=== PATIENT | female | born 1965 | race Caucasian/White ===

== ENCOUNTER 2018-08-13 08:31 | Inpatient (IN) | payer OTHER ==
[~2018-08-13] VITALS: Ht 165.1 cm; Wt 56.2 kg
[2018-08-13] VITALS (11 sets, daily range): BP systolic 121–145; BP diastolic 63–84
[2018-08-13] MEDS ORDERED: MORPHINE SULFATE 4 MG/ML VIAL. IV/SQ PRN (09:00)
--- NOTE | 2018-08-13 09:03 | PHYS DOC ---
Past Medical History Past Medical History: No Pertinent History Smoking: Cigarettes (The patient is a nonsmoker.) Adult General Chief Complaint Chief Complaint: CHEST PAIN HPI HPI Patient is a 53-year-old female who presents to the emergency department for evaluation. She states about an hour and a half prior to arrival, she began experiencing some anterior chest pressure/heaviness, which somewhat radiates towards her neck and medial/posterior aspect of her left arm. She has not had any shortness of breath, diaphoresis, nausea or vomiting. Exertion seemed to slightly worsen her pain. There are no alleviating factors to her symptoms. The pain has waxed and waned once or twice, where she has had some brief relief. She has no prior history of coronary artery disease. Her father did have stroke but has been a heavy smoker. She is not a smoker. She has no history of hypertension. There are no alleviating or exacerbating factors to the patient's symptoms except as noted above. Pt did take 500 mg ASA prior to arrival at work, as she took 2 Excedrin Migrain tablet,s which have 250 mg ASA each.. Review of Systems Review of Systems Constitutional: Denies fever or chills [] Eyes: Denies change in visual acuity, redness, or eye pain [] HENT: Denies nasal congestion or sore throat [] Respiratory: Denies cough or shortness of breath [] Cardiovascular: No additional information not addressed in HPI [] GI: Denies abdominal pain, nausea, vomiting, bloody stools or diarrhea [] : Denies dysuria or hematuria [] Musculoskeletal: Denies back pain or joint pain [] Integument: Denies rash or skin lesions [] Neurologic: Denies headache, focal weakness or sensory changes [] Endocrine: Denies polyuria or polydipsia [] All other systems were reviewed and found to be within normal limits, except as documented in this note. Current Medications Current Medications Current Medications Medications (Trade) Dose Ordered Sig/Maria G Start Time Stop Time Status Last Admin Dose Admin Heparin Sodium (Porcine) (Heparin Sodium) 3,300 unit 1X ONCE 08/13/18 09:30 08/13/18 09:31 DC Heparin Sodium/ Dextrose 500 ml @ 0 mls/hr 1X ONCE 08/13/18 09:30 08/13/18 09:31 DC Morphine Sulfate (Morphine Sulfate) 4 mg PRN Q15MIN PRN 08/13/18 09:00 08/14/18 08:59 Nitroglycerin/ Dextrose 250 ml @ 3 mls/hr 1X ONCE 08/13/18 09:30 08/16/18 20:49 Allergies Allergies Allergies Coded Allergies Type Severity Reaction Last Updated Verified No Known Drug Allergies 08/13/18 No Physical Exam Physical Exam PHYSICAL EXAM: CONSTITUTIONAL: Well developed, well nourished HEAD: normocephalic, atraumatic EENT: PERRL, EOMI. Conjunctivae normal color, sclerae non-icteric; moist mucous membranes. NECK: Supple, non-tender; no meningismus. LUNGS: Lungs CTA, breathing even and unlabored. Normal air movement. HEART: Regular rate and rhythm, no murmur CHEST: No deformity; non-tender ABDOMEN: The abdomen is soft, and non-tender, no masses or bruits. EXTREM: Normal ROM; no deformity, no calf tenderness. Normal pulses palpable in all extremities. There is no pedal edema. SKIN: No rash; no diaphoresis NEURO: Alert; normal speech and cognition; CN's grossly intact; strength grossly intact without focal deficit. BACK: No CVA TTP. Current Patient Data Vital Signs Vital Signs Date Time Temp Pulse Resp B/P (MAP) Pulse Ox O2 Delivery O2 Flow Rate FiO2 08/13/18 08:45 97.4 77 16 167/103 (124) 100 Room Air 97.4 Lab Values Laboratory Tests Test 08/13/18 09:00 White Blood Count 6.7 x10^3/uL (4.0-11.0) Red Blood Count 5.01 x10^6/uL (3.50-5.40) Hemoglobin 15.2 g/dL (12.0-15.5) Hematocrit 44.4 % (36.0-47.0) Mean Corpuscular Volume 89 fL (79-100) Mean Corpuscular Hemoglobin 30 pg (25-35) Mean Corpuscular Hemoglobin Concent 34 g/dL (31-37) Red Cell Distribution Width 12.5 % (11.5-14.5) Platelet Count 289 x10^3/uL (140-400) Neutrophils (%) (Auto) 55 % (31-73) Lymphocytes (%) (Auto) 34 % (24-48) Monocytes (%) (Auto) 10 % (0-9) H Eosinophils (%) (Auto) 1 % (0-3) Basophils (%) (Auto) 1 % (0-3) Neutrophils # (Auto) 3.7 x10^3uL (1.8-7.7) Lymphocytes # (Auto) 2.3 x10^3/uL (1.0-4.8) Monocytes # (Auto) 0.6 x10^3/uL (0.0-1.1) Eosinophils # (Auto) 0.1 x10^3/uL (0.0-0.7) Basophils # (Auto) 0.0 x10^3/uL (0.0-0.2) Prothrombin Time 13.8 SEC (11.7-14.0) Prothrombin Time INR 1.1 (0.8-1.1) Sodium Level 135 mmol/L (136-145) L Potassium Level 4.0 mmol/L (3.5-5.1) Chloride Level 99 mmol/L (98-107) Carbon Dioxide Level 29 mmol/L (21-32) Anion Gap 7 (6-14) Blood Urea Nitrogen 17 mg/dL (7-20) Creatinine 0.9 mg/dL (0.6-1.0) Estimated GFR (Cockcroft-Gault) 65.2 BUN/Creatinine Ratio 19 (6-20) Glucose Level 113 mg/dL (70-99) H Calcium Level 9.4 mg/dL (8.5-10.1) Total Bilirubin 0.4 mg/dL (0.2-1.0) Aspartate Amino Transferase (AST) 20 U/L (15-37) Alanine Aminotransferase (ALT) 25 U/L (14-59) Alkaline Phosphatase 67 U/L (46-116) Troponin I Quantitative 0.063 ng/mL (0.000-0.055) Total Protein 8.1 g/dL (6.4-8.2) Albumin 4.4 g/dL (3.4-5.0) Albumin/Globulin Ratio 1.2 (1.0-1.7) Laboratory Tests 08/13/18 09:00 Laboratory Tests 08/13/18 09:00 EKG EKG [Normal sinus rhythm a rate of 70 beats for minute, normal axis, normal intervals, there is anterior/lateral ST depression in leads V3 through V5. There is no ST elevation.] Repeat EKG done at 933 shows normal sinus rhythm at a rate of 74 beats for minute, normal axis, normal intervals, improvement in the ST depression anteriorly/laterally that was present on a prior EKG without acute ischemic changes present at this time. Radiology/Procedures Radiology/Procedures []ER physician preliminary chest x-ray interpretation: No acute disease. Course & Med Decision Making Course & Med Decision Making Pertinent Labs and Imaging studies reviewed. (See chart for details) [8:55 AM: Assessment in the emergency Department reveals a 53-year-old female who has a story concerning for anginal chest pain, with some EKG changes suggestive of coronary ischemia. I did speak with cardiology on-call who will come see the patient. She'll be started on heparin, pending her chest x-ray, as well as nitroglycerin. The patient did take 500 mg of aspirin prior to arrival.] 9:35 AM:The patient's condition remains stable. I spoke with the hospitalist, who accepted the patient to the hospital for further evaluation and treatment. Cardiology has been consulted as well. CRITICAL CARE TIME: 45 Minutes, excluding any procedures and care of other patients. Dragon Disclaimer Dragon Disclaimer This electronic medical record was generated, in whole or in part, using a voice recognition dictation system. Departure Departure Impression: Primary Impression: Chest pain Additional Impression: Acute coronary syndrome Disposition: ADMITTED INPATIENT Admitting Physician: Brandon Da Silva Condition: STABLE Problem Qualifiers KOTA ORTIZ MD Aug 13, 2018 09:02
--- NOTE | 2018-08-13 09:07 | PDOC2 ---
TILA DANGELO PLY SPLICER 08/13/18 0907: CARDIAC CONSULT DATE OF CONSULT Date of Consult DATE: 08/13/18 TIME: 09:05 REASON FOR CONSULT Reason for Consult: ACS REFERRING PHYSICIAN Referring Physician: Seng SOURCE Source: Chart review, Patient HISTORY OF PRESENT ILLNESS HISTORY OF PRESENT ILLNESS This is a pleasant 53 yo female admitted for complains of chest pain. Reports that she was at work when she started having midchest pressure. This radiated to her neck and to her left arm. No nausea or SOA nor palpitations. No prior chest discomfort no FU or exertional CP prior to this. She did report that she climbed 2 flight of stairs just to get ASA but but her chest pressure did not get worse and no SOA. No prior hx of cardiac disease. She actually did yoga Friday with no difficulty. No tobacco use nor recreational drug use. Reports no family hx of cardiac diseases, no PUD, no recent long distance travel nor hx of VTE. Denies any routine medications and just takes advil PRN. She is still having mid chest pressure but not as bad. PAST MEDICAL HISTORY Past Medical History Nephrolithiasis, postmenopausal otherwise no significant medical hx. PAST SURGICAL HISTORY Past Surgical History: No pertinent history FAMILY HISTORY Family History: Stroke (father) SOCIAL HISTORY Smoke: No ALCOHOL: none Drugs: None Lives: with Family ALLERGIES ALLERGIES: Coded Allergies: No Known Drug Allergies (Unverified , 08/13/18) ROS Review of System 14 point ROS evaluated with pertinent positives noted per HPI PHYSICAL EXAM General: Alert, Oriented X3, Cooperative, No acute distress HEENT: Atraumatic, Mucous membr. moist/pink Lungs: Clear to auscultation, Normal air movement Heart: Regular rate (SR), Normal S1, Normal S2, No murmurs Abdomen: Soft, No tenderness Extremities: No cyanosis, No edema Skin: No breakdown, No significant lesion Neuro: Normal speech, Sensation intact Psych/Mental Status: Mental status NL, Mood NL MUSCULOSKELETAL: Osteoarthritic changes both hands ASSESSMENT/PLAN ASSESSMENT/PLAN NSTEMI: subtle ST depression contiguous V3-V5 with mild elevation of trop at 0.063 with typical CP. HTN: new HLP: new Postmenopausal Recommendations 1. Heparin, NTG drip, ASA. 2. Lipids, TTE 3. Significantly explained the need for LHC and ACS pathophysiology. Risks and benefits explained, pt hesitant currently, awaiting primary carrdiologist to talk to pt. DB ABDULLAHI MD 08/13/18 1734: CARDIAC CONSULT ASSESSMENT/PLAN ASSESSMENT/PLAN Patient seen and examined. Agree with above nurse practitioner note. 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 Continue aggressive risk factor modification. Discussed with patient and family. TILA DANGELO APRN Aug 13, 2018 09:07 DB ABDULLAHI MD Aug 13, 2018 17:34
--- NOTE | 2018-08-13 09:12 | RAD ---
EXAM: CHEST 1 VIEW History: Chest pain COMPARISON: None available. TECHNIQUE: Single portable radiograph of the chest FINDINGS: The cardiac silhouette is unremarkable. The lungs are clear bilaterally. The costophrenic sulci are clear and well demarcated. IMPRESSION: No radiographic evidence of an acute cardiopulmonary process. Electronically signed by: Jace Sosa MD (08/13/2018 9:08 AM) [id number]
[2018-08-13 09:17] LABS: BASO % 1 % (0-3); EOS # 0.1 x10^3/uL (0.0-0.7); EOS % 1 % (0-3); HEMATOCRIT 44.4 % (36.0-47.0); HEMOGLOBIN 15.2 g/dL (12.0-15.5); LYMPH # 2.3 x10^3/uL (1.0-4.8); LYMPH % 34 % (24-48); MEAN CORPUSCULAR HEMOGLOBIN 30 pg (25-35); MEAN CORPUSCULAR HGB CONC 34 g/dL (31-37); MEAN CORPUSCULAR VOLUME 89 fL (79-100); MONO # 0.6 x10^3/uL (0.0-1.1); MONO % 10 % (0-9); NEUT # 3.7 x10^3uL (1.8-7.7); NEUT % 55 % (31-73); PLATELET COUNT 289 x10^3/uL (140-400); RED BLOOD COUNT 5.01 x10^6/uL (3.50-5.40); RED CELL DISTRIBUTION WIDTH 12.5 % (11.5-14.5); WHITE BLOOD COUNT 6.7 x10^3/uL (4.0-11.0)
[2018-08-13 09:23] LABS: CALCIUM 9.4 mg/dL (8.5-10.1); CREATININE 0.9 mg/dL (0.6-1.0); GFR 65.2
[2018-08-13 09:28] LABS: ALBUMIN 4.4 g/dL (3.4-5.0); ALBUMIN/GLOBULIN RATIO 1.2 (1.0-1.7); TOTAL BILIRUBIN 0.4 mg/dL (0.2-1.0); TOTAL PROTEIN 8.1 g/dL (6.4-8.2)
[2018-08-13 09:30] LABS: PROTHROMBIN TIME PATIENT 13.8 SEC (11.7-14.0)
[2018-08-13] MEDS ORDERED: HEPARIN for IV BOLUS 10,000 UNIT/10 ML VIAL. IV ONE (09:30)
[2018-08-13] MEDS ORDERED: HEPARIN 25,000UTS/500ML PREMIX 500 ML IV ONE (09:30)
[2018-08-13] MEDS ORDERED: NITROGLYCERIN PREMIX 250 ML IV ONE (09:30)
--- NOTE | 2018-08-13 09:45 | EKG ---
[facility] [address] [place] [address] Test Date: 2018-08-13 Test Time: 09:33:59 Pat Name: TADEO CALDERA Department: Room: Gender: F Clam Shucker: : 1965 Requested By: KOTA ORTIZ Order Number: [id number] Reading MD: Harvey Hong MD Measurements Intervals [place] Rate: 74 P: -20 NV: 114 QRS: 66 QRSD: 78 T: 48 QT: 378 QTc: 420 Interpretive Statements SR NON-SPECIFIC ST/T CHANGES Electronically Signed On 08-17-2018 8:32:30 AVAYA ENGINEER by Harvey Hong MD
--- NOTE | 2018-08-13 10:14 | PDOC1 ---
History and Physical Date of Admission Date of Admission DATE: 08/13/18 TIME: 10:13 Identification/Chief Complaint Chief Complaint SEEN IN ER , began experiencing some anterior chest pressure/heaviness, radiates towards her neck and medial/posterior aspect of her left arm. has not had any shortness of breath, diaphoresis, nausea or vomiting. no alleviating factors to her symptoms. heparin drip started in ER, NTG drip as well exercised last week at yoga session, denied chest pain with exertion Past Medical History Cardiovascular: No pertinent hx Pulmonary: No pertinent hx Heme/Onc: No pertinent hx Hepatobiliary: No pertinent hx Psych: No pertinent hx ENT: No pertinent hx Renal/: No pertinent hx Dermatology: No pertinent hx Past Surgical History Past Surgical History: No pertinent history Family History Family History: Parent Social History Smoke: No ALCOHOL: none Drugs: None, Other (denies stress at work) Current Problem List Problem List Problems Medical Problems: (1) Acute coronary syndrome Status: Acute (2) Chest pain Status: Acute Current Medications Current Medications Current Medications Heparin Sodium (Porcine) (Heparin Sodium) 3,300 unit 1X ONCE IV Last administered on 08/13/18at 09:40; Start 08/13/18 at 09:30; Stop 08/13/18 at 09 :31; Status DC Heparin Sodium/ Dextrose 500 ml @ 0 mls/hr 1X ONCE IV Last administered on at 09:41; Start 08/13/18 at 09:30; Stop 08/13/18 at 09:31; Status DC Nitroglycerin/ Dextrose 250 ml @ 3 mls/hr 1X ONCE IV Last administered on at 09:41; Start 08/13/18 at 09:30; Stop 08/16/18 at 20:49 Morphine Sulfate (Morphine Sulfate) 4 mg PRN Q15MIN PRN IV/SQ PAIN GREATER THAN 3/10; Start 08/13/18 at 09:00; Stop 08/14/18 at 08:59 Allergies Allergies: Coded Allergies: No Known Drug Allergies (Unverified , 08/13/18) ROS Review of System Review of Systems Review of Systems Constitutional: Denies fever or chills [] Eyes: Denies change in visual acuity, redness, or eye pain [] HENT: Denies nasal congestion or sore throat [] Respiratory: Denies cough or shortness of breath [] Cardiovascular: No additional information not addressed in HPI [] GI: Denies abdominal pain, nausea, vomiting, bloody stools or diarrhea [] : Denies dysuria or hematuria [] Musculoskeletal: Denies back pain or joint pain [] Integument: Denies rash or skin lesions [] Neurologic: Denies headache, focal weakness or sensory changes [] Endocrine: Denies polyuria or polydipsia [] 14 pt systems were reviewed and found to be within normal limits, except as documented Eyes: No Blurry vision, No Decreased vision, No Double vision, No Dry eyes, No Excessive tearing, No Eye Pain, No Itchy Eyes, No Loss of vision, No Photophobia , No Scotomata, No Uses contacts, No Uses glasses, No Other Hematological and Lymphatic: No: Bleeding Problems, Blood Clots, Blood Transfusions, Brusing, Night Sweats, Pallor, Swollen Lymph Nodes, Other Respiratory: YES: Shortness of breath Cardiovascular: yes Chest Pain Gastrointestinal: No Nausea, No Vomiting, No Abdominal Pain, No Diarrhea, No Constipation, No Melena, No Hematochezia, No Other Musculoskeletal: No Gait Disturbance, No Joint Pain, No Joint Stiffness, No Joint Swelling, No Muscle Pain, No Muscular Weakness, No Pain In:, No Swelling In:, No Other Neurological: No Behavorial Changes, No Bowel/Bladder ControlChng, No Confusion , No Dizziness, No Gait Disturbance, No Headaches, No Impaired Coord/balance, No Memory Loss, No Numbness/Tingling, No Seizures, No Speech Problems, No Tremors, No Visual Changes, No Weakness, No Other Physical Exam Physical Exam Physical Exam Physical Exam PHYSICAL EXAM: Well developed, well nourished HEAD: normocephalic, atraumatic EENT: PERRL, EOMI. Conjunctivae normal color, sclerae non-icteric; moist mucous membranes. NECK: Supple, non-tender; no meningismus. LUNGS: Lungs CTA, breathing even and unlabored. Normal air movement. HEART: Regular rate and rhythm, no murmur CHEST: No deformity; non-tender ABDOMEN: The abdomen is soft, and non-tender, no masses or bruits. EXTREM: Normal ROM; no deformity, no calf tenderness. Normal pulses palpable in all extremities. There is no pedal edema. SKIN: No rash; no diaphoresis NEURO: Alert; normal speech and cognition; CN's grossly intact; strength grossly intact without focal deficit. BACK: No CVA TTP. General: Oriented X3, Cooperative HEENT: Atraumatic Lungs: Clear to auscultation, Normal air movement Heart: RRR, no thrills, no murmurs Breasts: Not examined Rectal Exam: not examined Extremities: No cyanosis Neuro: Normal speech, Cranial nerves 3-12 NL Psych/Mental Status: Mood NL Vitals Vitals Vital Signs Date Time Temp Pulse Resp B/P (MAP) Pulse Ox O2 Delivery O2 Flow Rate FiO2 08/13/18 08:45 97.4 77 16 167/103 (124) 100 Room Air 97.4 Labs Labs Laboratory Tests Test 08/13/18 09:00 White Blood Count 6.7 x10^3/uL (4.0-11.0) Red Blood Count 5.01 x10^6/uL (3.50-5.40) Hemoglobin 15.2 g/dL (12.0-15.5) Hematocrit 44.4 % (36.0-47.0) Mean Corpuscular Volume 89 fL (79-100) Mean Corpuscular Hemoglobin 30 pg (25-35) Mean Corpuscular Hemoglobin Concent 34 g/dL (31-37) Red Cell Distribution Width 12.5 % (11.5-14.5) Platelet Count 289 x10^3/uL (140-400) Neutrophils (%) (Auto) 55 % (31-73) Lymphocytes (%) (Auto) 34 % (24-48) Monocytes (%) (Auto) 10 % (0-9) Eosinophils (%) (Auto) 1 % (0-3) Basophils (%) (Auto) 1 % (0-3) Neutrophils # (Auto) 3.7 x10^3uL (1.8-7.7) Lymphocytes # (Auto) 2.3 x10^3/uL (1.0-4.8) Monocytes # (Auto) 0.6 x10^3/uL (0.0-1.1) Eosinophils # (Auto) 0.1 x10^3/uL (0.0-0.7) Basophils # (Auto) 0.0 x10^3/uL (0.0-0.2) Prothrombin Time 13.8 SEC (11.7-14.0) Prothromb Time International Ratio 1.1 (0.8-1.1) Sodium Level 135 mmol/L (136-145) Potassium Level 4.0 mmol/L (3.5-5.1) Chloride Level 99 mmol/L (98-107) Carbon Dioxide Level 29 mmol/L (21-32) Anion Gap 7 (6-14) Blood Urea Nitrogen 17 mg/dL (7-20) Creatinine 0.9 mg/dL (0.6-1.0) Estimated GFR (Cockcroft-Gault) 65.2 BUN/Creatinine Ratio 19 (6-20) Glucose Level 113 mg/dL (70-99) Calcium Level 9.4 mg/dL (8.5-10.1) Total Bilirubin 0.4 mg/dL (0.2-1.0) Aspartate Amino Transf (AST/SGOT) 20 U/L (15-37) Alanine Aminotransferase (ALT/SGPT) 25 U/L (14-59) Alkaline Phosphatase 67 U/L (46-116) Creatine Kinase 83 U/L (26-192) Creatine Kinase MB (Mass) 0.7 ng/mL (0.0-3.6) Creatine Kinase MB Relative Index 0.8 % (0-4) Troponin I Quantitative 0.063 ng/mL (0.000-0.055) YR-Crb-D-Type Natriuretic Peptide 39 pg/mL (0-124) Total Protein 8.1 g/dL (6.4-8.2) Albumin 4.4 g/dL (3.4-5.0) Albumin/Globulin Ratio 1.2 (1.0-1.7) Laboratory Tests Test 08/13/18 09:00 White Blood Count 6.7 x10^3/uL (4.0-11.0) Red Blood Count 5.01 x10^6/uL (3.50-5.40) Hemoglobin 15.2 g/dL (12.0-15.5) Hematocrit 44.4 % (36.0-47.0) Mean Corpuscular Volume 89 fL (79-100) Mean Corpuscular Hemoglobin 30 pg (25-35) Mean Corpuscular Hemoglobin Concent 34 g/dL (31-37) Red Cell Distribution Width 12.5 % (11.5-14.5) Platelet Count 289 x10^3/uL (140-400) Neutrophils (%) (Auto) 55 % (31-73) Lymphocytes (%) (Auto) 34 % (24-48) Monocytes (%) (Auto) 10 % (0-9) Eosinophils (%) (Auto) 1 % (0-3) Basophils (%) (Auto) 1 % (0-3) Neutrophils # (Auto) 3.7 x10^3uL (1.8-7.7) Lymphocytes # (Auto) 2.3 x10^3/uL (1.0-4.8) Monocytes # (Auto) 0.6 x10^3/uL (0.0-1.1) Eosinophils # (Auto) 0.1 x10^3/uL (0.0-0.7) Basophils # (Auto) 0.0 x10^3/uL (0.0-0.2) Prothrombin Time 13.8 SEC (11.7-14.0) Prothromb Time International Ratio 1.1 (0.8-1.1) Sodium Level 135 mmol/L (136-145) Potassium Level 4.0 mmol/L (3.5-5.1) Chloride Level 99 mmol/L (98-107) Carbon Dioxide Level 29 mmol/L (21-32) Anion Gap 7 (6-14) Blood Urea Nitrogen 17 mg/dL (7-20) Creatinine 0.9 mg/dL (0.6-1.0) Estimated GFR (Cockcroft-Gault) 65.2 BUN/Creatinine Ratio 19 (6-20) Glucose Level 113 mg/dL (70-99) Calcium Level 9.4 mg/dL (8.5-10.1) Total Bilirubin 0.4 mg/dL (0.2-1.0) Aspartate Amino Transf (AST/SGOT) 20 U/L (15-37) Alanine Aminotransferase (ALT/SGPT) 25 U/L (14-59) Alkaline Phosphatase 67 U/L (46-116) Creatine Kinase 83 U/L (26-192) Creatine Kinase MB (Mass) 0.7 ng/mL (0.0-3.6) Creatine Kinase MB Relative Index 0.8 % (0-4) Troponin I Quantitative 0.063 ng/mL (0.000-0.055) XA-Mut-D-Type Natriuretic Peptide 39 pg/mL (0-124) Total Protein 8.1 g/dL (6.4-8.2) Albumin 4.4 g/dL (3.4-5.0) Albumin/Globulin Ratio 1.2 (1.0-1.7) VTE Prophylaxis Ordered VTE Prophylaxis Devices: Yes VTE Pharmacological Prophylaxi: Yes Assessment/Plan Assessment/Plan impression 1. angina 2. acute coronary syndrome? 3. hyperlipidemia plan admit cvc cardiology consult iv heparin drip iv ntg drip echo gi prophylaxis serial troponin i tele CHILO SURESH MD Aug 13, 2018 10:14
[2018-08-13 10:16] LABS: CHOLESTEROL/HDL RATIO 3.3
[2018-08-13] MEDS ORDERED: HEPARIN for ARTERIAL LINE 1,500 ML ONE (10:50)
[2018-08-13] MEDS ORDERED: LIDOCAINE 1% PF 2 ML VIAL. ONE (10:50)
[2018-08-13] MEDS ORDERED: IOHEXOL 300 MG/ML 100ML VIAL. ONE ×2 (10:50→12:32)
[2018-08-13] MEDS: PANTOPRAZOLE 40 MG TABLET.DR. PO SCH (11:00)
[2018-08-13] MEDS ORDERED: LABETALOL 20 MG/4 ML DISP.SYRIN. IVP PRN (11:00)
[2018-08-13] MEDS ORDERED: fentaNYL PF VIAL 100 MCG/2 ML VIAL ONE (11:24)
[2018-08-13] MEDS ORDERED: MIDAZOLAM HCL/PF 2 MG/2 ML VIAL. ONE ×2 (11:24→12:13)
[2018-08-13] MEDS ORDERED: HEPARIN for IV BOLUS 10,000 UNIT/10 ML VIAL. ONE (11:25)
[2018-08-13] MEDS ORDERED: NITROGLYCERIN 200 MCG/2 ML SYRINGE FOR CATH/VASC LAB. ONE ×2 (11:25→12:50)
[2018-08-13] MEDS ORDERED: VERAPAMIL 5 MG/2 ML VIAL. ONE (11:25)
--- NOTE | 2018-08-13 12:05 | CARD ---
MR#: [id number] Date of Study: 08/13/2018 Ordering Physician: TILA DANGELO, Referring Physician: CHILO SURESH Tech: Vani Bhatia [facility] APPROVED REPORT EXAM: Two-dimensional and M-mode echocardiogram with Doppler and color Doppler. Other Information Quality : AverageHR: 82bpm Rhythm : NSR INDICATION positive troponin 2D DIMENSIONS RVDd2.1 (2.9-3.5cm)IVSd0.9 (0.7-1.1cm) Aortic Root(2D)2.7 (2.0-3.7cm)LVDd3.6 (3.9-5.9cm) LVOT Diameter1.8 (1.8-2.4cm)PWd0.9 (0.7-1.1cm) LVDs2.6 (2.5-4.0cm)FS (%) 28.0 % SV29.4 mlLVEF(%)55.2 (>50%) M-Mode DIMENSIONS Left Atrium(MM)2.53 (2.5-4.0cm)Aortic Root2.92 (2.2-3.7cm) Aortic Valve AoV Peak Amado.140.2cm/sAoV VTI24.7cm AO Peak GR.7.9mmHgLVOT VTI 19.15cm AO Mean GR.5mmHgAVA (VTI)2.10cm2 Mitral Valve MV E Kcywuorc40.3cm/sMV DECEL OUMH82ku MV A Ehdhvsao99.4cm/sE/A Ratio1.0 MV A [id number] TDI Lateral E' P. V14.29cm/sMedial E' P. V12.49cm/s E/Lateral E'5.5E/Medial E'6.3 LEFT VENTRICLE The left ventricle cavity is small. There is normal left ventricular wall thickness. The Ejection Fra ction is 55-60%. Cannot rule out mild hypokinesis of the distal 1/2 of the LV. Technically limited im ages. Transmitral Doppler flow pattern is Grade I-abnormal relaxation pattern. RIGHT VENTRICLE The right ventricle is normal size. There is normal right ventricular wall thickness. The right ventr icular systolic function is normal. Probable prominent anterior pericardial fat pad. Cannot rule out localized effusion. ATRIA The left atrium size is normal. The right atrium size is normal. The interatrial septum is intact wit h no evidence for an atrial septal defect or patent foramen ovale as noted on 2-D or Doppler imaging. AORTIC VALVE Not well visualized. Doppler and Color Flow revealed no significant aortic regurgitation. There is no significant aortic valvular stenosis. MITRAL VALVE The mitral valve is normal in structure and function. There is no evidence of mitral valve prolapse. There is no mitral valve stenosis. Doppler and Color Flow revealed no mitral valve regurgitation note d. TRICUSPID VALVE The tricuspid valve is normal in structure and function. Doppler and Color Flow revealed no tricuspid valve regurgitation noted. There is no tricuspid valve prolapse or vegetation. There is no tricuspid valve stenosis. PULMONIC VALVE Pulmonic valve not well visualized. GREAT VESSELS The aortic root is normal in size. The ascending aorta is normal in size. The IVC is normal in size a nd collapses >50% with inspiration. PERICARDIAL EFFUSION There is a small loculated pericardial effusion around the right heart with echodensities seen in the fluid. Critical Notification Critical Value: No <Conclusion> The Ejection Fraction is 55-60%. Cannot rule out mild hypokinesis of the distal 1/2 of the LV. Techni guilherme limited images. Probable prominent anterior pericardial fat pad. Cannot rule out localized effusion. Signed by : Harvey Hong, Electronically Approved : 08/13/2018 12:04:20
[2018-08-13] MEDS ORDERED: VERAPAMIL 5 MG/2 ML VIAL. IART ONE (12:30)
[2018-08-13] MEDS ORDERED: IV NORMAL SALINE 500ML BAG 500 ML IV ONE (12:30)
[2018-08-13] MEDS ORDERED: LIDOCAINE 1% PF 2 ML VIAL. INJ ONE (12:30)
[2018-08-13] MEDS ORDERED: fentaNYL PF VIAL 100 MCG/2 ML VIAL IV ONE (12:30)
[2018-08-13] MEDS ORDERED: CONTRAST GIVEN. MC PRN (12:30)
[2018-08-13] MEDS ORDERED: MIDAZOLAM HCL/PF 2 MG/2 ML VIAL. IV ONE (12:30)
[2018-08-13] MEDS ORDERED: IOHEXOL 300 MG/ML 100ML VIAL. IART ONE (12:30)
[2018-08-13] MEDS ORDERED: HEPARIN for IV BOLUS 10,000 UNIT/10 ML VIAL. IART ONE (12:30)
[2018-08-13] MEDS ORDERED: NITROGLYCERIN 200 MCG/2 ML SYRINGE FOR CATH/VASC LAB. IART ONE (12:30)
--- NOTE | 2018-08-13 13:07 | CARD ---
MR#: [id number] Date of Study: 08/13/2018 Ordering Physician: TILA DANGELO, Referring Physician: CHILO SURESH Tech: Grace Anderson RTR APPROVED REPORT Technologist: Grace Anderson RTR Nurse: Clau Diaz RN Procedure(s) performed: Moderate Sedation time: 50 minutes LHC, Coronary angiography, Left ventriculogram HISTORY The patient is a 53 year-old female with a history of : previous GA. INDICATION The indication(s) include : non-STEMI . PROCEDURE NARRATIVE CLINICAL INFORMATION: Healthy 53 y.o female w/o significant risk factors presented with classic anginal chest pain, positiv e troponin and abnormal EKG changes. Due to her presentation it was felt that occult CAD and spontane ous coronary artery dissection needed to be ruled out due to persistent pain despite NTG therapy. INFORMED CONSENT: After explaining the risks and benefits of the procedure and alternatives, informed consent was obtained. The patient was brought electively to the cardiac catheterization lab. A timeout was performed confi rming the patient's name, date of , procedure, and site of procedure. All necessary personnel w ere wearing the appropriate protective equipment and radiation monitor devices. (See nursing notes for medications administered). ACCESS: The right wrist was sterilely prepped and draped in the usual fashion. The right wrist was infiltrat ed with 1 mL of 2% lidocaine for subcutaneous anesthesia. A 6 [place] Terumo glide sheath was inserte d into the right radial artery without difficulty. CORONARY ANGIOGRAPHY: Right and left coronary angiography was performed using a 6Fr TIG 4.0 catheter/ JR4. Left ventricul ar end diastolic pressure was obtained with a pigtail catheter and pullback was performed after left ventriculography. All catheter exchanges and advancements were performed over a guidewire. CLOSURE: At case completion the right radial sheath was removed and a Terumo radial band was applied with 13 m l of air. COMPLICATIONS: The patient tolerated the procedure well and there were no immediate complications. FINDINGS: HEMODYNAMICS: LVEDP 8 mm Hg No gradient on LV to aortic pullback. AO: 110/70 LEFT VENTRICULOGRAM: EF 55% Anterobasal: Normal. Anterolateral: Severe hypokinesis. Apical: Normal Diaphragmatic: Normal Posterobasal: Normal CORONARY ANGIOGRAPHY: LM is a large caliber vessel with normal angiographic appearance. LAD is a large caliber vessel with normal angiographic appearance. There is a dual LAD system. The d istal vessels tapers rapidly. D1 is a small caliber vessel with normal angiographic apeparance. LCx is a moderate caliber non-dominant vessel with normal angiographic appearance. OM1 is a moderate caliber vessel with a distal spontaneous coronary artery dissection is a small 1 mm caliber vessel. The proximal vessel has normal angiographic appearance. RCA is a large caliber dominant vessel with normal angiographic appearance. The RCA has an anomalous origin from the left coronary cusp. RPDA and RPL are moderate caliber vessels with normal angiographic appearance. Conclusion 1. Normal left sided filling pressures. 2. Normal LV function. EF 55%. 3. 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 4. 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 Recommendations ASA 81mg daily Plavix 75mg daily for at least 1 year. Continue heparin gtt for 24 hours. High dose statin therapy Close monitoring of BP Cardiac rehab referral. Signed by : Harvey Hong, Electronically Approved : 08/13/2018 13:06:26
--- NOTE | 2018-08-13 13:25 | EKG ---
[facility] [address] [place] [address] Test Date: 2018-08-13 Test Time: 08:48:10 Pat Name: TADEO CALDERA Department: Room: 262 1 Gender: Provider Relations Representative: : 1965 Requested By: KOTA ORTIZ Order Number: [id number] Reading MD: Harvey Hong MD Measurements Intervals [place] Rate: P: NM: QRS: QRSD: T: QT: QTc: Interpretive Statements SR CONSIDER LATERAL INJURY Electronically Signed On 08-17-2018 8:32:07 COMMISSARY OFFICER by Harvey Hong MD
[2018-08-13] MEDS: LISINOPRIL 5 MG TABLET. PO SCH (16:45)
[2018-08-13] MEDS: CLOPIDOGREL BISULFATE 75 MG TABLET PO SCH (17:16)
[2018-08-13] MEDS: ATORVASTATIN CALCIUM 40 MG TABLET. PO SCH (21:05)
[2018-08-14 03:00] VITALS: BP 142/78
[2018-08-14 07:00] VITALS: BP 135/84
[2018-08-14 07:22] LABS: BASO # 0.1 x10^3/uL (0.0-0.2); BASO % 1 % (0-3); EOS % 0 % (0-3); HEMATOCRIT 44.5 % (36.0-47.0); HEMOGLOBIN 15.1 g/dL (12.0-15.5); LYMPH # 2.6 x10^3/uL (1.0-4.8); LYMPH % 25 % (24-48); MEAN CORPUSCULAR HEMOGLOBIN 30 pg (25-35); MEAN CORPUSCULAR HGB CONC 34 g/dL (31-37); MEAN CORPUSCULAR VOLUME 89 fL (79-100); MONO % 9 % (0-9); NEUT # 6.9 x10^3uL (1.8-7.7); NEUT % 65 % (31-73); PLATELET COUNT 283 x10^3/uL (140-400); RED BLOOD COUNT 5.03 x10^6/uL (3.50-5.40); RED CELL DISTRIBUTION WIDTH 12.4 % (11.5-14.5); WHITE BLOOD COUNT 10.6 x10^3/uL (4.0-11.0)
[2018-08-14 07:42] LABS: ALBUMIN 4.1 g/dL (3.4-5.0); ALBUMIN/GLOBULIN RATIO 1.1 (1.0-1.7); CALCIUM 9.4 mg/dL (8.5-10.1); CREATININE 0.7 mg/dL (0.6-1.0); GFR 87.2; TOTAL BILIRUBIN 0.5 mg/dL (0.2-1.0); TOTAL PROTEIN 7.8 g/dL (6.4-8.2)
[2018-08-14] MEDS: PANTOPRAZOLE 40 MG TABLET.DR. PO SCH (08:23)
[2018-08-14] MEDS: ASPIRIN ENTERIC COATED 81 MG TABLET.DR. PO SCH (08:23)
[2018-08-14] MEDS: CLOPIDOGREL BISULFATE 75 MG TABLET PO SCH (08:23)
[2018-08-14] MEDS: LISINOPRIL 5 MG TABLET. PO SCH ×2 (08:29→10:19)
--- NOTE | 2018-08-14 09:16 | PDOC ---
TILA DANGELO POLICE OFFICER 08/14/18 0916: CARDIO Progress Notes Date and Time Date of Service 08/14/2018 Time of Evaluation 0910 Subjective Subjective: No Chest Pain, No shortness of breath, No Palpitations, Other (no symptoms overnight) Vitals Vitals Vital Signs Date Time Temp Pulse Resp B/P (MAP) Pulse Ox O2 Delivery O2 Flow Rate FiO2 08/14/18 07:00 97.4 90 16 135/84 (101) 98 Room Air 97.4 08/13/18 13:20 2.0 Weight Weight [ ] Input and Output Intake and Output Intake and Output 08/14/18 07:00 Intake Total 1957.2 ml Output Total 750 ml Balance 1207.2 ml Intake Oral 1800 ml IV Total 157.2 ml Output Urine Total 750 ml # Voids 2 Laboratory Labs Laboratory Tests Test 08/13/18 13:45 08/13/18 15:34 08/14/18 07:05 Troponin I Quantitative 2.479 ng/mL (0.000-0.055) 4.531 ng/mL (0.000-0.055) 33.326 ng/mL (0.000-0.055) White Blood Count 10.6 x10^3/uL (4.0-11.0) Red Blood Count 5.03 x10^6/uL (3.50-5.40) Hemoglobin 15.1 g/dL (12.0-15.5) Hematocrit 44.5 % (36.0-47.0) Mean Corpuscular Volume 89 fL (79-100) Mean Corpuscular Hemoglobin 30 pg (25-35) Mean Corpuscular Hemoglobin Concent 34 g/dL (31-37) Red Cell Distribution Width 12.4 % (11.5-14.5) Platelet Count 283 x10^3/uL (140-400) Neutrophils (%) (Auto) 65 % (31-73) Lymphocytes (%) (Auto) 25 % (24-48) Monocytes (%) (Auto) 9 % (0-9) Eosinophils (%) (Auto) 0 % (0-3) Basophils (%) (Auto) 1 % (0-3) Neutrophils # (Auto) 6.9 x10^3uL (1.8-7.7) Lymphocytes # (Auto) 2.6 x10^3/uL (1.0-4.8) Monocytes # (Auto) 1.0 x10^3/uL (0.0-1.1) Eosinophils # (Auto) 0.0 x10^3/uL (0.0-0.7) Basophils # (Auto) 0.1 x10^3/uL (0.0-0.2) Sodium Level 137 mmol/L (136-145) Potassium Level 4.0 mmol/L (3.5-5.1) Chloride Level 102 mmol/L (98-107) Carbon Dioxide Level 25 mmol/L (21-32) Anion Gap 10 (6-14) Blood Urea Nitrogen 10 mg/dL (7-20) Creatinine 0.7 mg/dL (0.6-1.0) Estimated GFR (Cockcroft-Gault) 87.2 BUN/Creatinine Ratio 14 (6-20) Glucose Level 112 mg/dL (70-99) Calcium Level 9.4 mg/dL (8.5-10.1) Total Bilirubin 0.5 mg/dL (0.2-1.0) Aspartate Amino Transf (AST/SGOT) 165 U/L (15-37) Alanine Aminotransferase (ALT/SGPT) 38 U/L (14-59) Alkaline Phosphatase 66 U/L (46-116) Total Protein 7.8 g/dL (6.4-8.2) Albumin 4.1 g/dL (3.4-5.0) Albumin/Globulin Ratio 1.1 (1.0-1.7) Physical Exam HEENT: Neck Supple W Full Motion Chest: Symmetric LUNGS: Clear to Auscultation Heart: S1S2, RRR (SR) Abdomen: Soft N/T Extremities: No Calf Tenderness Neurology: alert, oriented, follow commands Assessment Assessment NSTEMI: LHC revealed 3 spontaneous coronary artery dissection involving the distal OM1. HTN HLP Postmenopausal Recommendations 1. Troponin at 33, no symptoms. Will continue heparin till trop starts trending down. 2. ASA/plavix. Statin and ACEi. Hesitant about lisinopril, discussed with pt. Cardiac rehab. DB ABDULLAHI MD 08/14/181818: CARDIO Progress Notes Plan Plan Patient seen and examined. Agree with above nurse practitioner note. Continue asa, plavix, statin and heparin therapy Trop now downtrending. No symptoms. Normal exam. Plan for DC tomorrow. THanks TILA DANGELO APRN Aug 14, 2018 09:16 DB ABDULLAHI MD Aug 14, 2018 18:19
[2018-08-14] MEDS ORDERED: HEPARIN 25,000UTS/500ML PREMIX 500 ML IV PRN (09:30)
[2018-08-14] MEDS ORDERED: HEPARIN for IV BOLUS 10,000 UNIT/10 ML VIAL. IV PRN (09:30)
--- NOTE | 2018-08-14 09:39 | EKG ---
[facility] [address] [place] [address] Test Date: 2018-08-14 Test Time: 09:37:20 Pat Name: TADEO CALDERA Department: Room: 262 1 Gender: F [employer] Director: WILLY : 1965 Requested By: TILA DANGELO Order Number: [id number] Reading MD: Mac Boyd Measurements Intervals [place] Rate: 90 P: 68 NE: 134 QRS: 82 QRSD: 72 T: 64 QT: 330 QTc: 407 Interpretive Statements SINUS RHYTHM LEFT ATRIAL ABNORMALITY Electronically Signed On 08-17-2018 8:45:45 DEVELOPMENT INTERN by Mac Boyd
--- NOTE | 2018-08-14 10:13 | PDOC ---
PROGRESS NOTES History of Present Illness History of Present Illness Assessment/Plan Assessment/Plan impression 1. angina 2. acute coronary syndrome 3. hyperlipidemia 4. 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 plan admit cvc cardiology consult iv heparin drip iv ntg drip echo gi prophylaxis serial troponin i tele Vitals Vitals Vital Signs Date Time Temp Pulse Resp B/P (MAP) Pulse Ox O2 Delivery O2 Flow Rate FiO2 08/14/18 07:00 97.4 90 16 135/84 (101) 98 Room Air 97.4 08/13/18 13:20 2.0 Physical Exam General: Alert, Oriented X3, Cooperative, No acute distress Heart: Regular rate (SR), Normal S1, Normal S2, No murmurs Lungs: Clear Abdomen: Normal bowel sounds, Soft, No tenderness Extremities: No clubbing, No cyanosis, No edema Skin: No breakdown, No significant lesion Labs LABS Laboratory Tests Test 08/13/18 13:45 08/13/18 15:34 08/14/18 07:05 Troponin I Quantitative 2.479 ng/mL (0.000-0.055) 4.531 ng/mL (0.000-0.055) 33.326 ng/mL (0.000-0.055) White Blood Count 10.6 x10^3/uL (4.0-11.0) Red Blood Count 5.03 x10^6/uL (3.50-5.40) Hemoglobin 15.1 g/dL (12.0-15.5) Hematocrit 44.5 % (36.0-47.0) Mean Corpuscular Volume 89 fL (79-100) Mean Corpuscular Hemoglobin 30 pg (25-35) Mean Corpuscular Hemoglobin Concent 34 g/dL (31-37) Red Cell Distribution Width 12.4 % (11.5-14.5) Platelet Count 283 x10^3/uL (140-400) Neutrophils (%) (Auto) 65 % (31-73) Lymphocytes (%) (Auto) 25 % (24-48) Monocytes (%) (Auto) 9 % (0-9) Eosinophils (%) (Auto) 0 % (0-3) Basophils (%) (Auto) 1 % (0-3) Neutrophils # (Auto) 6.9 x10^3uL (1.8-7.7) Lymphocytes # (Auto) 2.6 x10^3/uL (1.0-4.8) Monocytes # (Auto) 1.0 x10^3/uL (0.0-1.1) Eosinophils # (Auto) 0.0 x10^3/uL (0.0-0.7) Basophils # (Auto) 0.1 x10^3/uL (0.0-0.2) Sodium Level 137 mmol/L (136-145) Potassium Level 4.0 mmol/L (3.5-5.1) Chloride Level 102 mmol/L (98-107) Carbon Dioxide Level 25 mmol/L (21-32) Anion Gap 10 (6-14) Blood Urea Nitrogen 10 mg/dL (7-20) Creatinine 0.7 mg/dL (0.6-1.0) Estimated GFR (Cockcroft-Gault) 87.2 BUN/Creatinine Ratio 14 (6-20) Glucose Level 112 mg/dL (70-99) Calcium Level 9.4 mg/dL (8.5-10.1) Total Bilirubin 0.5 mg/dL (0.2-1.0) Aspartate Amino Transf (AST/SGOT) 165 U/L (15-37) Alanine Aminotransferase (ALT/SGPT) 38 U/L (14-59) Alkaline Phosphatase 66 U/L (46-116) Total Protein 7.8 g/dL (6.4-8.2) Albumin 4.1 g/dL (3.4-5.0) Albumin/Globulin Ratio 1.1 (1.0-1.7) Assessment and Plan Assessmemt and Plan Problems Medical Problems: (1) Acute coronary syndrome Status: Acute (2) Chest pain Status: Acute Comment Review of Relevant I have reviewed the following items ricardo (where applicable) has been applied. Labs Laboratory Tests Test 08/13/18 09:00 08/13/18 13:45 08/13/18 15:34 08/14/18 07:05 White Blood Count 6.7 x10^3/uL (4.0-11.0) 10.6 x10^3/uL (4.0-11.0) Red Blood Count 5.01 x10^6/uL (3.50-5.40) 5.03 x10^6/uL (3.50-5.40) Hemoglobin 15.2 g/dL (12.0-15.5) 15.1 g/dL (12.0-15.5) Hematocrit 44.4 % (36.0-47.0) 44.5 % (36.0-47.0) Mean Corpuscular Volume 89 fL (79-100) 89 fL (79-100) Mean Corpuscular Hemoglobin 30 pg (25-35) 30 pg (25-35) Mean Corpuscular Hemoglobin Concent 34 g/dL (31-37) 34 g/dL (31-37) Red Cell Distribution Width 12.5 % (11.5-14.5) 12.4 % (11.5-14.5) Platelet Count 289 x10^3/uL (140-400) 283 x10^3/uL (140-400) Neutrophils (%) (Auto) 55 % (31-73) 65 % (31-73) Lymphocytes (%) (Auto) 34 % (24-48) 25 % (24-48) Monocytes (%) (Auto) 10 % (0-9) 9 % (0-9) Eosinophils (%) (Auto) 1 % (0-3) 0 % (0-3) Basophils (%) (Auto) 1 % (0-3) 1 % (0-3) Neutrophils # (Auto) 3.7 x10^3uL (1.8-7.7) 6.9 x10^3uL (1.8-7.7) Lymphocytes # (Auto) 2.3 x10^3/uL (1.0-4.8) 2.6 x10^3/uL (1.0-4.8) Monocytes # (Auto) 0.6 x10^3/uL (0.0-1.1) 1.0 x10^3/uL (0.0-1.1) Eosinophils # (Auto) 0.1 x10^3/uL (0.0-0.7) 0.0 x10^3/uL (0.0-0.7) Basophils # (Auto) 0.0 x10^3/uL (0.0-0.2) 0.1 x10^3/uL (0.0-0.2) Prothrombin Time 13.8 SEC (11.7-14.0) Prothromb Time International Ratio 1.1 (0.8-1.1) Sodium Level 135 mmol/L (136-145) 137 mmol/L (136-145) Potassium Level 4.0 mmol/L (3.5-5.1) 4.0 mmol/L (3.5-5.1) Chloride Level 99 mmol/L (98-107) 102 mmol/L (98-107) Carbon Dioxide Level 29 mmol/L (21-32) 25 mmol/L (21-32) Anion Gap 7 (6-14) 10 (6-14) Blood Urea Nitrogen 17 mg/dL (7-20) 10 mg/dL (7-20) Creatinine 0.9 mg/dL (0.6-1.0) 0.7 mg/dL (0.6-1.0) Estimated GFR (Cockcroft-Gault) 65.2 87.2 BUN/Creatinine Ratio 19 (6-20) 14 (6-20) Glucose Level 113 mg/dL (70-99) 112 mg/dL (70-99) Calcium Level 9.4 mg/dL (8.5-10.1) 9.4 mg/dL (8.5-10.1) Total Bilirubin 0.4 mg/dL (0.2-1.0) 0.5 mg/dL (0.2-1.0) Aspartate Amino Transf (AST/SGOT) 20 U/L (15-37) 165 U/L (15-37) Alanine Aminotransferase (ALT/SGPT) 25 U/L (14-59) 38 U/L (14-59) Alkaline Phosphatase 67 U/L (46-116) 66 U/L (46-116) Creatine Kinase 83 U/L (26-192) Creatine Kinase MB (Mass) 0.7 ng/mL (0.0-3.6) Creatine Kinase MB Relative Index 0.8 % (0-4) Troponin I Quantitative 0.063 ng/mL (0.000-0.055) 2.479 ng/mL (0.000-0.055) 4.531 ng/mL (0.000-0.055) 33.326 ng/mL (0.000-0.055) WF-Mar-M-Type Natriuretic Peptide 39 pg/mL (0-124) Total Protein 8.1 g/dL (6.4-8.2) 7.8 g/dL (6.4-8.2) Albumin 4.4 g/dL (3.4-5.0) 4.1 g/dL (3.4-5.0) Albumin/Globulin Ratio 1.2 (1.0-1.7) 1.1 (1.0-1.7) Triglycerides Level 112 mg/dL (0-150) Cholesterol Level 257 mg/dL (0-200) LDL Cholesterol, Calculated 156 mg/dL (0-100) VLDL Cholesterol, Calculated 22 mg/dL (0-40) Non-HDL Cholesterol Calculated 178 mg/dL (0-129) HDL Cholesterol 79 mg/dL (40-60) Cholesterol/HDL Ratio 3.3 Laboratory Tests Test 08/13/18 13:45 08/13/18 15:34 08/14/18 07:05 Troponin I Quantitative 2.479 ng/mL (0.000-0.055) 4.531 ng/mL (0.000-0.055) 33.326 ng/mL (0.000-0.055) White Blood Count 10.6 x10^3/uL (4.0-11.0) Red Blood Count 5.03 x10^6/uL (3.50-5.40) Hemoglobin 15.1 g/dL (12.0-15.5) Hematocrit 44.5 % (36.0-47.0) Mean Corpuscular Volume 89 fL (79-100) Mean Corpuscular Hemoglobin 30 pg (25-35) Mean Corpuscular Hemoglobin Concent 34 g/dL (31-37) Red Cell Distribution Width 12.4 % (11.5-14.5) Platelet Count 283 x10^3/uL (140-400) Neutrophils (%) (Auto) 65 % (31-73) Lymphocytes (%) (Auto) 25 % (24-48) Monocytes (%) (Auto) 9 % (0-9) Eosinophils (%) (Auto) 0 % (0-3) Basophils (%) (Auto) 1 % (0-3) Neutrophils # (Auto) 6.9 x10^3uL (1.8-7.7) Lymphocytes # (Auto) 2.6 x10^3/uL (1.0-4.8) Monocytes # (Auto) 1.0 x10^3/uL (0.0-1.1) Eosinophils # (Auto) 0.0 x10^3/uL (0.0-0.7) Basophils # (Auto) 0.1 x10^3/uL (0.0-0.2) Sodium Level 137 mmol/L (136-145) Potassium Level 4.0 mmol/L (3.5-5.1) Chloride Level 102 mmol/L (98-107) Carbon Dioxide Level 25 mmol/L (21-32) Anion Gap 10 (6-14) Blood Urea Nitrogen 10 mg/dL (7-20) Creatinine 0.7 mg/dL (0.6-1.0) Estimated GFR (Cockcroft-Gault) 87.2 BUN/Creatinine Ratio 14 (6-20) Glucose Level 112 mg/dL (70-99) Calcium Level 9.4 mg/dL (8.5-10.1) Total Bilirubin 0.5 mg/dL (0.2-1.0) Aspartate Amino Transf (AST/SGOT) 165 U/L (15-37) Alanine Aminotransferase (ALT/SGPT) 38 U/L (14-59) Alkaline Phosphatase 66 U/L (46-116) Total Protein 7.8 g/dL (6.4-8.2) Albumin 4.1 g/dL (3.4-5.0) Albumin/Globulin Ratio 1.1 (1.0-1.7) Medications Current Medications Heparin Sodium (Porcine) (Heparin Sodium) 3,300 unit 1X ONCE IV Last administered on 08/13/18at 09:40; Start 08/13/18 at 09:30; Stop 08/13/18 at 09 :31; Status DC Heparin Sodium/ Dextrose 500 ml @ 0 mls/hr 1X ONCE IV Last administered on at 09:41; Start 08/13/18 at 09:30; Stop 08/13/18 at 09:31; Status DC Nitroglycerin/ Dextrose 250 ml @ 3 mls/hr 1X ONCE IV Last administered on at 09:41; Start 08/13/18 at 09:30; Stop 08/16/18 at 20:49 Morphine Sulfate (Morphine Sulfate) 4 mg PRN Q15MIN PRN IV/SQ PAIN GREATER THAN 3/10; Start 08/13/18 at 09:00; Stop 08/14/18 at 08:59; Status DC Pantoprazole Sodium (Protonix) 40 mg DAILYAC PO Last administered on at 08:23; Start 08/13/18 at 11:00 Lidocaine HCl (Xylocaine-Mpf 1% 2ml Vial) 2 ml STK-MED ONCE .ROUTE ; Start at 10:50; Stop 08/13/18 at 10:51; Status DC Iohexol (Omnipaque 300 Mg/ml) 100 ml STK-MED ONCE .ROUTE ; Start 08/13/18 at 10 :50; Stop 08/13/18 at 10:51; Status DC Heparin Sodium/ Sodium Chloride 1,500 ml @ As Directed STK-MED ONCE .ROUTE ; Start 08/13/18 at 10:50; Stop 08/14/18 at 09:31; Status DC Atorvastatin Calcium (Lipitor) 40 mg QHS PO Last administered on 08/13/18at 21: 05; Start 08/13/18 at 21:00 Labetalol HCl (Normodyne Iv Push) 20 mg PRN Q2HR PRN IVP HYPERTENSION, SEE COMMENTS; Start 08/13/18 at 11:00 Fentanyl Citrate (Fentanyl 2ml Vial) 100 mcg STK-MED ONCE .ROUTE ; Start at 11:24; Stop 08/13/18 at 11:25; Status DC Midazolam HCl (Versed) 2 mg STK-MED ONCE .ROUTE ; Start 08/13/18 at 11:24; Stop 08/13/18 at 11:25; Status DC Heparin Sodium (Porcine) (Heparin Sodium) 10,000 unit STK-MED ONCE .ROUTE ; Start 08/13/18 at 11:25; Stop 08/13/18 at 11:26; Status DC Verapamil HCl (Verapamil) 5 mg STK-MED ONCE .ROUTE ; Start 08/13/18 at 11:25; Stop 08/13/18 at 11:26; Status DC Nitroglycerin (Nitroglycerin) 200 mcg STK-MED ONCE .ROUTE ; Start 08/13/18 at 11:25; Stop 08/13/18 at 11:26; Status DC Midazolam HCl (Versed) 2 mg STK-MED ONCE .ROUTE ; Start 08/13/18 at 12:13; Stop 08/13/18 at 12:14; Status DC Nitroglycerin (Nitroglycerin) 200 mcg 1X ONCE IART Last administered on at 12:49; Start 08/13/18 at 12:30; Stop 08/13/18 at 12:31; Status DC Verapamil HCl (Verapamil) 2.5 mg 1X ONCE IART Last administered on 08/13/18at 12:50; Start 08/13/18 at 12:30; Stop 08/13/18 at 12:31; Status DC Heparin Sodium (Porcine) (Heparin Sodium) 2,500 unit 1X ONCE IART Last administered on 08/13/18at 12:51; Start 08/13/18 at 12:30; Stop 08/13/18 at 12 :31; Status DC Heparin Sodium/ Sodium Chloride (HEPARIN for ARTERIAL LINE FLUSH) 1,000 unit 1X ONCE IART Last administered on 08/13/18at 12:49; Start 08/13/18 at 12:30; Stop 08/14/18 at 09:31; Status DC Heparin Sodium/ Sodium Chloride (HEPARIN for ARTERIAL LINE FLUSH) 1,000 unit 1X ONCE IART Last administered on 08/13/18at 12:49; Start 08/13/18 at 12:30; Stop 08/14/18 at 09:31; Status DC Midazolam HCl (Versed) 2 mg 1X ONCE IV Last administered on 08/13/18at 12:51; Start 08/13/18 at 12:30; Stop 08/13/18 at 12:31; Status DC Fentanyl Citrate (Fentanyl 2ml Vial) 100 mcg 1X ONCE IV Last administered on 08/13/18at 12:50; Start 08/13/18 at 12:30; Stop 08/13/18 at 12:31; Status DC Iohexol (Omnipaque 300 Mg/ml) 100 ml 1X ONCE IART Last administered on at 12:51; Start 08/13/18 at 12:30; Stop 08/13/18 at 12:31; Status DC Lidocaine HCl (Xylocaine-Mpf 1% 2ml Vial) 2 ml 1X ONCE INJ Last administered on 08/13/18at 12:50; Start 08/13/18 at 12:30; Stop 08/13/18 at 12:31; Status DC Sodium Chloride 500 ml @ 500 mls/hr 1X ONCE IV Last administered on at 12:30; Start 08/13/18 at 12:30; Stop 08/13/18 at 13:29; Status DC Info (CONTRAST GIVEN -- Rx MONITORING) 1 each PRN DAILY PRN MC SEE COMMENTS; Start 08/13/18 at 12:30; Stop 08/15/18 at 12:29 Iohexol (Omnipaque 300 Mg/ml) 100 ml STK-MED ONCE .ROUTE ; Start 08/13/18 at 12 :32; Stop 08/13/18 at 12:33; Status DC Nitroglycerin (Nitroglycerin) 200 mcg STK-MED ONCE .ROUTE ; Start 08/13/18 at 12:50; Stop 08/13/18 at 12:51; Status DC Aspirin (Ecotrin) 81 mg DAILYWBKFT PO Last administered on 08/14/18at 08:23; Start 08/14/18 at 08:00 Clopidogrel Bisulfate (Plavix) 75 mg DAILYWBKFT PO Last administered on at 08:23; Start 08/13/18 at 16:45 Lisinopril (Prinivil) 5 mg DAILY PO ; Start 08/13/18 at 16:45 Heparin Sodium/ Dextrose 500 ml @ 0 mls/hr CONT PRN IV SEE I/O RECORD Last administered on 08/14/18at 09:58; Start 08/14/18 at 09:30 Heparin Sodium (Porcine) (Heparin Sodium) 1,400 unit PRN Q6HRS PRN IV FOR UFH LEVEL LESS THAN 0.2; Start 08/14/18 at 09:30 Vitals/I & O Vital Sign - Last 24 Hours 08/13/18 08/13/18 08/13/18 08/13/18 10:47 12:50 12:50 12:53 Temp 97.6 97.6 Pulse 83 100 87 Resp 12 20 20 B/P (MAP) 133/84 (100) Pulse Ox 100 100 100 O2 Delivery Room Air Nasal Cannula Nasal Cannula O2 Flow Rate 2.0 2.0 08/13/18 08/13/18 08/13/18 08/13/18 13:05 13:20 13:20 13:35 Pulse 92 80 84 Resp 18 18 18 B/P (MAP) 124/63 (83) 125/70 (88) 123/78 (93) Pulse Ox 100 100 100 100 O2 Delivery Room Air Nasal Cannula Room Air Room Air O2 Flow Rate 2.0 08/13/18 08/13/18 08/13/18 08/13/18 13:50 14:30 15:00 15:04 Temp 97.8 97.8 Pulse 80 106 82 98 Resp 16 16 12 18 B/P (MAP) 137/82 (100) 141/68 (92) 140/67 (91) 140/71 (94) Pulse Ox 99 100 96 98 O2 Delivery Room Air Room Air Room Air Room Air 08/13/18 08/13/18 08/13/18 08/14/18 19:55 20:00 23:00 03:00 Temp 98.6 98.2 100.2 98.6 98.2 100.2 Pulse 86 88 102 Resp 16 16 14 B/P (MAP) 145/71 (95) 138/69 (92) 142/78 (99) Pulse Ox 97 96 96 O2 Delivery Room Air Room Air Room Air Room Air 08/14/18 07:00 Temp 97.4 97.4 Pulse 90 Resp 16 B/P (MAP) 135/84 (101) Pulse Ox 98 O2 Delivery Room Air Intake and Output 08/13/18 08/13/18 08/14/18 15:00 23:00 07:00 Intake Total 300 ml 1657.2 ml Output Total 750 ml Balance -750 ml 300 ml 1657.2 ml CHILO SURESH MD Aug 14, 2018 10:13
[2018-08-14 11:00] VITALS: BP 163/89
[2018-08-14 15:00] VITALS: BP 122/79
[2018-08-14] MEDS ORDERED: ANTI-COAG MONITOR BY PHARMACY. MC PRN (17:15)
[2018-08-14 19:44] VITALS: BP 87/56
[2018-08-14] MEDS: ATORVASTATIN CALCIUM 40 MG TABLET. PO SCH (21:17)
[2018-08-14 23:50] VITALS: BP 86/52
[2018-08-15 03:45] VITALS: BP 92/56
[2018-08-15 07:48] VITALS: BP 111/51
[2018-08-15 07:48] LABS: HEMATOCRIT 41.1 % (36.0-47.0); HEMOGLOBIN 14.2 g/dL (12.0-15.5); RED BLOOD COUNT 4.61 x10^6/uL (3.50-5.40); RED CELL DISTRIBUTION WIDTH 12.5 % (11.5-14.5); WHITE BLOOD COUNT 8.4 x10^3/uL (4.0-11.0)
[2018-08-15 09:07] VITALS: BP 111/51
[2018-08-15] MEDS: LISINOPRIL 5 MG TABLET. PO SCH (09:07)
[2018-08-15] MEDS: CLOPIDOGREL BISULFATE 75 MG TABLET PO SCH (09:07)
[2018-08-15] MEDS: PANTOPRAZOLE 40 MG TABLET.DR. PO SCH (09:07)
[2018-08-15] MEDS: ASPIRIN ENTERIC COATED 81 MG TABLET.DR. PO SCH (09:07)
--- NOTE | 2018-08-15 09:54 | PDOC ---
PROGRESS NOTES History of Present Illness History of Present Illness Assessment/Plan Assessment/Plan impression 1. angina 2. acute coronary syndrome 3. hyperlipidemia 4. 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 4. ACUTE CA plan cvc cardiology consult REVIEWED iv heparin drip D/C D/C LISINOPRIL echo gi prophylaxis serial troponin i tele CATH REVIEWED Vitals Vitals Vital Signs Date Time Temp Pulse Resp B/P (MAP) Pulse Ox O2 Delivery O2 Flow Rate FiO2 08/15/18 09:07 96 111/51 08/15/18 07:48 98.6 18 96 Room Air 98.6 08/14/18 20:15 2.0 Physical Exam General: Alert, Oriented X3, Cooperative, No acute distress Heart: Regular rate (SR), Normal S1, Normal S2, No murmurs Lungs: Clear Abdomen: Normal bowel sounds, Soft, No tenderness Extremities: No clubbing, No cyanosis, No edema Skin: No breakdown, No significant lesion Labs LABS Laboratory Tests Test 08/14/18 16:50 08/15/18 00:30 08/15/18 06:50 Heparin Anti-Xa Act, Unfractionated 0.18 IU/mL (0.30-0.70) 0.39 IU/mL (0.30-0.70) 0.32 IU/mL (0.30-0.70) Troponin I Quantitative 22.980 ng/mL (0.000-0.055) 19.067 ng/mL (0.000-0.055) White Blood Count 8.4 x10^3/uL (4.0-11.0) Red Blood Count 4.61 x10^6/uL (3.50-5.40) Hemoglobin 14.2 g/dL (12.0-15.5) Hematocrit 41.1 % (36.0-47.0) Mean Corpuscular Volume 89 fL (79-100) Mean Corpuscular Hemoglobin 31 pg (25-35) Mean Corpuscular Hemoglobin Concent 35 g/dL (31-37) Red Cell Distribution Width 12.5 % (11.5-14.5) Platelet Count 252 x10^3/uL (140-400) Assessment and Plan Assessmemt and Plan Problems Medical Problems: (1) Acute coronary syndrome Status: Acute (2) Chest pain Status: Acute Comment Review of Relevant I have reviewed the following items ricardo (where applicable) has been applied. Labs Laboratory Tests Test 08/13/18 13:45 08/13/18 15:34 08/14/18 07:05 08/14/18 16:50 Troponin I Quantitative 2.479 ng/mL (0.000-0.055) 4.531 ng/mL (0.000-0.055) 33.326 ng/mL (0.000-0.055) 22.980 ng/mL (0.000-0.055) White Blood Count 10.6 x10^3/uL (4.0-11.0) Red Blood Count 5.03 x10^6/uL (3.50-5.40) Hemoglobin 15.1 g/dL (12.0-15.5) Hematocrit 44.5 % (36.0-47.0) Mean Corpuscular Volume 89 fL (79-100) Mean Corpuscular Hemoglobin 30 pg (25-35) Mean Corpuscular Hemoglobin Concent 34 g/dL (31-37) Red Cell Distribution Width 12.4 % (11.5-14.5) Platelet Count 283 x10^3/uL (140-400) Neutrophils (%) (Auto) 65 % (31-73) Lymphocytes (%) (Auto) 25 % (24-48) Monocytes (%) (Auto) 9 % (0-9) Eosinophils (%) (Auto) 0 % (0-3) Basophils (%) (Auto) 1 % (0-3) Neutrophils # (Auto) 6.9 x10^3uL (1.8-7.7) Lymphocytes # (Auto) 2.6 x10^3/uL (1.0-4.8) Monocytes # (Auto) 1.0 x10^3/uL (0.0-1.1) Eosinophils # (Auto) 0.0 x10^3/uL (0.0-0.7) Basophils # (Auto) 0.1 x10^3/uL (0.0-0.2) Sodium Level 137 mmol/L (136-145) Potassium Level 4.0 mmol/L (3.5-5.1) Chloride Level 102 mmol/L (98-107) Carbon Dioxide Level 25 mmol/L (21-32) Anion Gap 10 (6-14) Blood Urea Nitrogen 10 mg/dL (7-20) Creatinine 0.7 mg/dL (0.6-1.0) Estimated GFR (Cockcroft-Gault) 87.2 BUN/Creatinine Ratio 14 (6-20) Glucose Level 112 mg/dL (70-99) Calcium Level 9.4 mg/dL (8.5-10.1) Total Bilirubin 0.5 mg/dL (0.2-1.0) Aspartate Amino Transf (AST/SGOT) 165 U/L (15-37) Alanine Aminotransferase (ALT/SGPT) 38 U/L (14-59) Alkaline Phosphatase 66 U/L (46-116) Total Protein 7.8 g/dL (6.4-8.2) Albumin 4.1 g/dL (3.4-5.0) Albumin/Globulin Ratio 1.1 (1.0-1.7) Heparin Anti-Xa Act, Unfractionated 0.18 IU/mL (0.30-0.70) Test 08/15/18 00:30 08/15/18 06:50 Heparin Anti-Xa Act, Unfractionated 0.39 IU/mL (0.30-0.70) 0.32 IU/mL (0.30-0.70) Troponin I Quantitative 19.067 ng/mL (0.000-0.055) White Blood Count 8.4 x10^3/uL (4.0-11.0) Red Blood Count 4.61 x10^6/uL (3.50-5.40) Hemoglobin 14.2 g/dL (12.0-15.5) Hematocrit 41.1 % (36.0-47.0) Mean Corpuscular Volume 89 fL (79-100) Mean Corpuscular Hemoglobin 31 pg (25-35) Mean Corpuscular Hemoglobin Concent 35 g/dL (31-37) Red Cell Distribution Width 12.5 % (11.5-14.5) Platelet Count 252 x10^3/uL (140-400) Laboratory Tests Test 08/14/18 16:50 08/15/18 00:30 08/15/18 06:50 Heparin Anti-Xa Act, Unfractionated 0.18 IU/mL (0.30-0.70) 0.39 IU/mL (0.30-0.70) 0.32 IU/mL (0.30-0.70) Troponin I Quantitative 22.980 ng/mL (0.000-0.055) 19.067 ng/mL (0.000-0.055) White Blood Count 8.4 x10^3/uL (4.0-11.0) Red Blood Count 4.61 x10^6/uL (3.50-5.40) Hemoglobin 14.2 g/dL (12.0-15.5) Hematocrit 41.1 % (36.0-47.0) Mean Corpuscular Volume 89 fL (79-100) Mean Corpuscular Hemoglobin 31 pg (25-35) Mean Corpuscular Hemoglobin Concent 35 g/dL (31-37) Red Cell Distribution Width 12.5 % (11.5-14.5) Platelet Count 252 x10^3/uL (140-400) Medications Current Medications Heparin Sodium (Porcine) (Heparin Sodium) 3,300 unit 1X ONCE IV Last administered on 08/13/18at 09:40; Start 08/13/18 at 09:30; Stop 08/13/18 at 09 :31; Status DC Heparin Sodium/ Dextrose 500 ml @ 0 mls/hr 1X ONCE IV Last administered on at 09:41; Start 08/13/18 at 09:30; Stop 08/13/18 at 09:31; Status DC Nitroglycerin/ Dextrose 250 ml @ 3 mls/hr 1X ONCE IV Last administered on at 09:41; Start 08/13/18 at 09:30; Stop 08/16/18 at 20:49 Morphine Sulfate (Morphine Sulfate) 4 mg PRN Q15MIN PRN IV/SQ PAIN GREATER THAN 3/10; Start 08/13/18 at 09:00; Stop 08/14/18 at 08:59; Status DC Pantoprazole Sodium (Protonix) 40 mg DAILYAC PO Last administered on 08/15/18at 09:07; Start 08/13/18 at 11:00 Lidocaine HCl (Xylocaine-Mpf 1% 2ml Vial) 2 ml STK-MED ONCE .ROUTE ; Start at 10:50; Stop 08/13/18 at 10:51; Status DC Iohexol (Omnipaque 300 Mg/ml) 100 ml STK-MED ONCE .ROUTE ; Start 08/13/18 at 10 :50; Stop 08/13/18 at 10:51; Status DC Heparin Sodium/ Sodium Chloride 1,500 ml @ As Directed STK-MED ONCE .ROUTE ; Start 08/13/18 at 10:50; Stop 08/14/18 at 09:31; Status DC Atorvastatin Calcium (Lipitor) 40 mg QHS PO Last administered on 08/14/18at 21: 17; Start 08/13/18 at 21:00 Labetalol HCl (Normodyne Iv Push) 20 mg PRN Q2HR PRN IVP HYPERTENSION, SEE COMMENTS; Start 08/13/18 at 11:00 Fentanyl Citrate (Fentanyl 2ml Vial) 100 mcg STK-MED ONCE .ROUTE ; Start at 11:24; Stop 08/13/18 at 11:25; Status DC Midazolam HCl (Versed) 2 mg STK-MED ONCE .ROUTE ; Start 08/13/18 at 11:24; Stop 08/13/18 at 11:25; Status DC Heparin Sodium (Porcine) (Heparin Sodium) 10,000 unit STK-MED ONCE .ROUTE ; Start 08/13/18 at 11:25; Stop 08/13/18 at 11:26; Status DC Verapamil HCl (Verapamil) 5 mg STK-MED ONCE .ROUTE ; Start 08/13/18 at 11:25; Stop 08/13/18 at 11:26; Status DC Nitroglycerin (Nitroglycerin) 200 mcg STK-MED ONCE .ROUTE ; Start 08/13/18 at 11:25; Stop 08/13/18 at 11:26; Status DC Midazolam HCl (Versed) 2 mg STK-MED ONCE .ROUTE ; Start 08/13/18 at 12:13; Stop 08/13/18 at 12:14; Status DC Nitroglycerin (Nitroglycerin) 200 mcg 1X ONCE IART Last administered on at 12:49; Start 08/13/18 at 12:30; Stop 08/13/18 at 12:31; Status DC Verapamil HCl (Verapamil) 2.5 mg 1X ONCE IART Last administered on 08/13/18at 12:50; Start 08/13/18 at 12:30; Stop 08/13/18 at 12:31; Status DC Heparin Sodium (Porcine) (Heparin Sodium) 2,500 unit 1X ONCE IART Last administered on 08/13/18at 12:51; Start 08/13/18 at 12:30; Stop 08/13/18 at 12 :31; Status DC Heparin Sodium/ Sodium Chloride (HEPARIN for ARTERIAL LINE FLUSH) 1,000 unit 1X ONCE IART Last administered on 08/13/18at 12:49; Start 08/13/18 at 12:30; Stop 08/14/18 at 09:31; Status DC Heparin Sodium/ Sodium Chloride (HEPARIN for ARTERIAL LINE FLUSH) 1,000 unit 1X ONCE IART Last administered on 08/13/18at 12:49; Start 08/13/18 at 12:30; Stop 08/14/18 at 09:31; Status DC Midazolam HCl (Versed) 2 mg 1X ONCE IV Last administered on 08/13/18at 12:51; Start 08/13/18 at 12:30; Stop 08/13/18 at 12:31; Status DC Fentanyl Citrate (Fentanyl 2ml Vial) 100 mcg 1X ONCE IV Last administered on 08/13/18at 12:50; Start 08/13/18 at 12:30; Stop 08/13/18 at 12:31; Status DC Iohexol (Omnipaque 300 Mg/ml) 100 ml 1X ONCE IART Last administered on at 12:51; Start 08/13/18 at 12:30; Stop 08/13/18 at 12:31; Status DC Lidocaine HCl (Xylocaine-Mpf 1% 2ml Vial) 2 ml 1X ONCE INJ Last administered on 08/13/18at 12:50; Start 08/13/18 at 12:30; Stop 08/13/18 at 12:31; Status DC Sodium Chloride 500 ml @ 500 mls/hr 1X ONCE IV Last administered on at 12:30; Start 08/13/18 at 12:30; Stop 08/13/18 at 13:29; Status DC Info (CONTRAST GIVEN -- Rx MONITORING) 1 each PRN DAILY PRN MC SEE COMMENTS; Start 08/13/18 at 12:30; Stop 08/15/18 at 12:29 Iohexol (Omnipaque 300 Mg/ml) 100 ml STK-MED ONCE .ROUTE ; Start 08/13/18 at 12 :32; Stop 08/13/18 at 12:33; Status DC Nitroglycerin (Nitroglycerin) 200 mcg STK-MED ONCE .ROUTE ; Start 08/13/18 at 12:50; Stop 08/13/18 at 12:51; Status DC Aspirin (Ecotrin) 81 mg DAILYWBKFT PO Last administered on 08/15/18at 09:07; Start 08/14/18 at 08:00 Clopidogrel Bisulfate (Plavix) 75 mg DAILYWBKFT PO Last administered on at 09:07; Start 08/13/18 at 16:45 Lisinopril (Prinivil) 5 mg DAILY PO Last administered on 08/15/18at 09:07; Start 08/13/18 at 16:45 Heparin Sodium/ Dextrose 500 ml @ 0 mls/hr CONT PRN IV SEE I/O RECORD Last administered on 08/14/18at 09:58; Start 08/14/18 at 09:30 Heparin Sodium (Porcine) (Heparin Sodium) 1,400 unit PRN Q6HRS PRN IV FOR UFH LEVEL LESS THAN 0.2 Last administered on 08/14/18at 18:08; Start 08/14/18 at 09 :30 Info (Anti-Coagulation Monitoring By Pharmacy) 1 each PRN DAILY PRN MC SEE COMMENTS Last administered on 08/15/18at 08:23; Start 08/14/18 at 17:15 Vitals/I & O Vital Sign - Last 24 Hours 08/14/18 08/14/18 08/14/18 08/14/18 10:19 11:00 15:00 19:44 Temp 98.1 98.5 97.9 98.1 98.5 97.9 Pulse 100 95 93 111 Resp 20 20 21 B/P (MAP) 163/89 163/89 (113) 122/79 (93) 87/56 (66) Pulse Ox 98 98 96 O2 Delivery Room Air Room Air Room Air 08/14/18 08/14/18 08/15/18 08/15/18 20:15 23:50 03:45 07:48 Temp 98.5 98.5 98.6 98.5 98.5 98.6 Pulse 109 110 96 Resp B/P (MAP) 86/52 (63) 92/56 (68) 111/51 (71) Pulse Ox 98 97 96 O2 Delivery Room Air Room Air Room Air Room Air O2 Flow Rate 2.0 08/15/18 09:07 Pulse 96 B/P (MAP) 111/51 Intake and Output 08/14/18 08/14/18 08/15/18 15:01 23:01 07:01 Intake Total 500 ml 300 ml Balance 500 ml 300 ml CHILO SURESH MD Aug 15, 2018 09:54
--- NOTE | 2018-08-15 10:37 | PDOC ---
Provider Note Provider Note No new issues. Meds reviewed: Home on ASA 81mg daily, Metoprolol XL 25mg daily, Atorvastatin 40mg daily and Plavix 75mg daily. No Lisinopril. Will f/u in 4-6 weeks. Thanks. DB ABDULLAHI MD Aug 15, 2018 10:37
--- NOTE | 2018-08-15 11:06 | PDOC3 ---
Discharge Summary Date of Admission: Aug 13, 2018 Date of Discharge: Aug 15, 2018 Follow-Up: 3-5 days Admitting Diagnosis comment: Assessment/Plan Assessment/Plan impression 1. angina 2. acute coronary syndrome 3. hyperlipidemia 4. 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 5. ACUTE ND plan cvc cardiology consult REVIEWED OK FOR D/C TODAY iv heparin drip D/C D/C LISINOPRIL echo gi prophylaxis serial troponin i NOTED CATH REVIEWED Vitals Vitals Vital Signs Date Time Temp Pulse Resp B/P (MAP) Pulse Ox O2 Delivery O2 Flow Rate FiO2 08/15/18 09:07 96 111/51 08/15/18 07:48 98.6 18 96 Room Air 98.6 08/14/18 20:15 2.0 Physical Exam General: Alert, Oriented X3, Cooperative, No acute distress Heart: Regular rate (SR), Normal S1, Normal S2, No murmurs Lungs: Clear Abdomen: Normal bowel sounds, Soft, No tenderness Extremities: No clubbing, No cyanosis, No edema Skin: No breakdown, No significant lesion FINAL DIAGNOSIS Problems Medical Problems: (1) Acute coronary syndrome Status: Acute (2) Chest pain Status: Acute Brief Hospital Course Ms. Wilks is a 53 old [sex] who presented with [ACUTE CORONARY DISSECTION ] CONDITION AT DISCHARGE: Improved Discharge Medications Current Medications Heparin Sodium (Porcine) (Heparin Sodium) 3,300 unit 1X ONCE IV Last administered on 08/13/18at 09:40; Start 08/13/18 at 09:30; Stop 08/13/18 at 09 :31; Status DC Heparin Sodium/ Dextrose 500 ml @ 0 mls/hr 1X ONCE IV Last administered on at 09:41; Start 08/13/18 at 09:30; Stop 08/13/18 at 09:31; Status DC Nitroglycerin/ Dextrose 250 ml @ 3 mls/hr 1X ONCE IV Last administered on at 09:41; Start 08/13/18 at 09:30; Stop 08/16/18 at 20:49 Morphine Sulfate (Morphine Sulfate) 4 mg PRN Q15MIN PRN IV/SQ PAIN GREATER THAN 3/10; Start 08/13/18 at 09:00; Stop 08/14/18 at 08:59; Status DC Pantoprazole Sodium (Protonix) 40 mg DAILYAC PO Last administered on 08/15/18at 09:07; Start 08/13/18 at 11:00 Lidocaine HCl (Xylocaine-Mpf 1% 2ml Vial) 2 ml STK-MED ONCE .ROUTE ; Start at 10:50; Stop 08/13/18 at 10:51; Status DC Iohexol (Omnipaque 300 Mg/ml) 100 ml STK-MED ONCE .ROUTE ; Start 08/13/18 at 10 :50; Stop 08/13/18 at 10:51; Status DC Heparin Sodium/ Sodium Chloride 1,500 ml @ As Directed STK-MED ONCE .ROUTE ; Start 08/13/18 at 10:50; Stop 08/14/18 at 09:31; Status DC Atorvastatin Calcium (Lipitor) 40 mg QHS PO Last administered on 08/14/18at 21: 17; Start 08/13/18 at 21:00 Labetalol HCl (Normodyne Iv Push) 20 mg PRN Q2HR PRN IVP HYPERTENSION, SEE COMMENTS; Start 08/13/18 at 11:00 Fentanyl Citrate (Fentanyl 2ml Vial) 100 mcg STK-MED ONCE .ROUTE ; Start at 11:24; Stop 08/13/18 at 11:25; Status DC Midazolam HCl (Versed) 2 mg STK-MED ONCE .ROUTE ; Start 08/13/18 at 11:24; Stop 08/13/18 at 11:25; Status DC Heparin Sodium (Porcine) (Heparin Sodium) 10,000 unit STK-MED ONCE .ROUTE ; Start 08/13/18 at 11:25; Stop 08/13/18 at 11:26; Status DC Verapamil HCl (Verapamil) 5 mg STK-MED ONCE .ROUTE ; Start 08/13/18 at 11:25; Stop 08/13/18 at 11:26; Status DC Nitroglycerin (Nitroglycerin) 200 mcg STK-MED ONCE .ROUTE ; Start 08/13/18 at 11:25; Stop 08/13/18 at 11:26; Status DC Midazolam HCl (Versed) 2 mg STK-MED ONCE .ROUTE ; Start 08/13/18 at 12:13; Stop 08/13/18 at 12:14; Status DC Nitroglycerin (Nitroglycerin) 200 mcg 1X ONCE IART Last administered on 12:49; Start 08/13/18 at 12:30; Stop 08/13/18 at 12:31; Status DC Verapamil HCl (Verapamil) 2.5 mg 1X ONCE IART Last administered on 08/13/18at 12:50; Start 08/13/18 at 12:30; Stop 08/13/18 at 12:31; Status DC Heparin Sodium (Porcine) (Heparin Sodium) 2,500 unit 1X ONCE IART Last administered on 08/13/18at 12:51; Start 08/13/18 at 12:30; Stop 08/13/18 at 12 :31; Status DC Heparin Sodium/ Sodium Chloride (HEPARIN for ARTERIAL LINE FLUSH) 1,000 unit 1X ONCE IART Last administered on 08/13/18 12:49; Start 08/13/18 at 12:30; Stop 08/14/18 at 09:31; Status DC Heparin Sodium/ Sodium Chloride (HEPARIN for ARTERIAL LINE FLUSH) 1,000 unit 1X ONCE IART Last administered on 08/13/18 12:49; Start 08/13/18 at 12:30; Stop 08/14/18 at 09:31; Status DC Midazolam HCl (Versed) 2 mg 1X ONCE IV Last administered on 08/13/18 12:51; Start 08/13/18 at 12:30; Stop 08/13/18 at 12:31; Status DC Fentanyl Citrate (Fentanyl 2ml Vial) 100 mcg 1X ONCE IV Last administered on 08/13/18 12:50; Start 08/13/18 at 12:30; Stop 08/13/18 at 12:31; Status DC Iohexol (Omnipaque 300 Mg/ml) 100 ml 1X ONCE IART Last administered on at 12:51; Start 08/13/18 at 12:30; Stop 08/13/18 at 12:31; Status DC Lidocaine HCl (Xylocaine-Mpf 1% 2ml Vial) 2 ml 1X ONCE INJ Last administered on 08/13/18 12:50; Start 08/13/18 at 12:30; Stop 08/13/18 at 12:31; Status DC Sodium Chloride 500 ml @ 500 mls/hr 1X ONCE IV Last administered on at 12:30; Start 08/13/18 at 12:30; Stop 08/13/18 at 13:29; Status DC Info (CONTRAST GIVEN -- Rx MONITORING) 1 each PRN DAILY PRN MC SEE COMMENTS; Start 08/13/18 at 12:30; Stop 08/15/18 at 12:29 Iohexol (Omnipaque 300 Mg/ml) 100 ml STK-MED ONCE .ROUTE ; Start 08/13/18 at 12 :32; Stop 08/13/18 at 12:33; Status DC Nitroglycerin (Nitroglycerin) 200 mcg STK-MED ONCE .ROUTE ; Start 08/13/18 at 12:50; Stop 08/13/18 at 12:51; Status DC Aspirin (Ecotrin) 81 mg DAILYWBKFT PO Last administered on 08/15/18at 09:07; Start 08/14/18 at 08:00 Clopidogrel Bisulfate (Plavix) 75 mg DAILYWBKFT PO Last administered on at 09:07; Start 08/13/18 at 16:45 Lisinopril (Prinivil) 5 mg DAILY PO Last administered on 08/15/18at 09:07; Start 08/13/18 at 16:45 Heparin Sodium/ Dextrose 500 ml @ 0 mls/hr CONT PRN IV SEE I/O RECORD Last administered on 08/14/18at 09:58; Start 08/14/18 at 09:30 Heparin Sodium (Porcine) (Heparin Sodium) 1,400 unit PRN Q6HRS PRN IV FOR UFH LEVEL LESS THAN 0.2 Last administered on 08/14/18at 18:08; Start 08/14/18 at 09 :30 Info (Anti-Coagulation Monitoring By Pharmacy) 1 each PRN DAILY PRN MC SEE COMMENTS Last administered on 08/15/18 08:23; Start 08/14/18 at 17:15 Vital Signs Vital Signs Date Time Temp Pulse Resp B/P (MAP) Pulse Ox O2 Delivery O2 Flow Rate FiO2 08/15/18 09:07 96 111/51 08/15/18 07:48 98.6 18 96 Room Air 98.6 08/14/18 20:15 2.0 Labs Laboratory Tests Test 08/13/18 13:45 08/13/18 15:34 08/14/18 07:05 08/14/18 16:50 Troponin I Quantitative 2.479 ng/mL (0.000-0.055) 4.531 ng/mL (0.000-0.055) 33.326 ng/mL (0.000-0.055) 22.980 ng/mL (0.000-0.055) White Blood Count 10.6 x10^3/uL (4.0-11.0) Red Blood Count 5.03 x10^6/uL (3.50-5.40) Hemoglobin 15.1 g/dL (12.0-15.5) Hematocrit 44.5 % (36.0-47.0) Mean Corpuscular Volume 89 fL (79-100) Mean Corpuscular Hemoglobin 30 pg (25-35) Mean Corpuscular Hemoglobin Concent 34 g/dL (31-37) Red Cell Distribution Width 12.4 % (11.5-14.5) Platelet Count 283 x10^3/uL (140-400) Neutrophils (%) (Auto) 65 % (31-73) Lymphocytes (%) (Auto) 25 % (24-48) Monocytes (%) (Auto) 9 % (0-9) Eosinophils (%) (Auto) 0 % (0-3) Basophils (%) (Auto) 1 % (0-3) Neutrophils # (Auto) 6.9 x10^3uL (1.8-7.7) Lymphocytes # (Auto) 2.6 x10^3/uL (1.0-4.8) Monocytes # (Auto) 1.0 x10^3/uL (0.0-1.1) Eosinophils # (Auto) 0.0 x10^3/uL (0.0-0.7) Basophils # (Auto) 0.1 x10^3/uL (0.0-0.2) Sodium Level 137 mmol/L (136-145) Potassium Level 4.0 mmol/L (3.5-5.1) Chloride Level 102 mmol/L (98-107) Carbon Dioxide Level 25 mmol/L (21-32) Anion Gap 10 (6-14) Blood Urea Nitrogen 10 mg/dL (7-20) Creatinine 0.7 mg/dL (0.6-1.0) Estimated GFR (Cockcroft-Gault) 87.2 BUN/Creatinine Ratio 14 (6-20) Glucose Level 112 mg/dL (70-99) Calcium Level 9.4 mg/dL (8.5-10.1) Total Bilirubin 0.5 mg/dL (0.2-1.0) Aspartate Amino Transf (AST/SGOT) 165 U/L (15-37) Alanine Aminotransferase (ALT/SGPT) 38 U/L (14-59) Alkaline Phosphatase 66 U/L (46-116) Total Protein 7.8 g/dL (6.4-8.2) Albumin 4.1 g/dL (3.4-5.0) Albumin/Globulin Ratio 1.1 (1.0-1.7) Heparin Anti-Xa Act, Unfractionated 0.18 IU/mL (0.30-0.70) Test 08/15/18 00:30 08/15/18 06:50 Heparin Anti-Xa Act, Unfractionated 0.39 IU/mL (0.30-0.70) 0.32 IU/mL (0.30-0.70) Troponin I Quantitative 19.067 ng/mL (0.000-0.055) White Blood Count 8.4 x10^3/uL (4.0-11.0) Red Blood Count 4.61 x10^6/uL (3.50-5.40) Hemoglobin 14.2 g/dL (12.0-15.5) Hematocrit 41.1 % (36.0-47.0) Mean Corpuscular Volume 89 fL (79-100) Mean Corpuscular Hemoglobin 31 pg (25-35) Mean Corpuscular Hemoglobin Concent 35 g/dL (31-37) Red Cell Distribution Width 12.5 % (11.5-14.5) Platelet Count 252 x10^3/uL (140-400) Laboratory Tests Test 08/14/18 16:50 08/15/18 00:30 08/15/18 06:50 Heparin Anti-Xa Act, Unfractionated 0.18 IU/mL (0.30-0.70) 0.39 IU/mL (0.30-0.70) 0.32 IU/mL (0.30-0.70) Troponin I Quantitative 22.980 ng/mL (0.000-0.055) 19.067 ng/mL (0.000-0.055) White Blood Count 8.4 x10^3/uL (4.0-11.0) Red Blood Count 4.61 x10^6/uL (3.50-5.40) Hemoglobin 14.2 g/dL (12.0-15.5) Hematocrit 41.1 % (36.0-47.0) Mean Corpuscular Volume 89 fL (79-100) Mean Corpuscular Hemoglobin 31 pg (25-35) Mean Corpuscular Hemoglobin Concent 35 g/dL (31-37) Red Cell Distribution Width 12.5 % (11.5-14.5) Platelet Count 252 x10^3/uL (140-400) Allergies Allergies Coded Allergies Type Severity Reaction Last Updated Verified No Known Drug Allergies 08/13/18 No Disposition/Orders: D/C to Home Patient Instructions D/C PLANNING 31 MIN CHILO SURESH MD Aug 15, 2018 11:06
--- NOTE | 2018-08-15 11:07 | DISCH ---
DISCHARGE INSTRUCTIONS Condition on Discharge Condition on Discharge: Stable Activity After Discharge Activity Instructions for Disc: Activity as tolerated, Avoid exertion Bathing Instructions: Shower-keep dressing dry Lifting Instructions after Dis: No heavy lifting, No pulling or pushing Exercise Instruction after Dis: Walk 10 min, 3 x per day Driving Instructions after Dis: Do not drive today Weight Bearing Status after Di: As tolerated Diet after Discharge Diet after Discharge: Cardiac Checks after Discharge Checks after discharge: Check blood press - daily Contacting the DR. after DC Call your doctor for: If your condition worsens CHILO SURESH MD Aug 15, 2018 11:07
[2018-08-15] MEDS ORDERED: CLOP75TA PO (11:12)
[2018-08-15] MEDS ORDERED: ATOR40TA59 PO (11:12)
[2018-08-15] MEDS ORDERED: ASPI-612 PO (11:12)
[2018-08-15] MEDS ORDERED: METO-239 PO (11:13)
== END 2018-08-15 12:00 | disposition home or self-care (01) | DRG 280 ==
LOC: ER 08:31 → 2 SOUTH 09:40
PROVIDERS: ADMIT Family Medicine; ATTEND Family Medicine
PROC: 4A023N7 Measurement of Cardiac Sampling and Pressure, Left Heart, Percutaneous Approach (ICD-10-PCS; principal; 2018-08-13)
PROC: B2111ZZ Fluoroscopy of Multiple Coronary Arteries using Low Osmolar Contrast (ICD-10-PCS; 2018-08-13)
PROC: B2151ZZ Fluoroscopy of Left Heart using Low Osmolar Contrast (ICD-10-PCS; 2018-08-13)
DX: I21.4 Non-ST elevation (NSTEMI) myocardial infarction (principal); I25.42 Coronary artery dissection; I25.119 Atherosclerotic heart disease of native coronary artery with unspecified angina pectoris; E78.5 Hyperlipidemia, unspecified; I10 Essential (primary) hypertension; N95.9 Unspecified menopausal and perimenopausal disorder; Z87.891 Personal history of nicotine dependence
CPT/HCPCS: 36415; 71045; 80053; 80061; 82553; 83880; 84484; 85025; 85027; 85520; 85610; 93005; 93306; 93458; 96365; 96368; 96375; 99152; 99153; C1769; C1892; J1644; J2250; J3010; J3490; J7040; Q9967; 99291-25